=== PATIENT | female | born 1985 | race Caucasian/White ===

== ENCOUNTER 2019-01-10 17:14 | Emergency (ER) | payer BC, SELFPAY ==
[2019-01-10 17:15] VITALS: BP 115/68; PULSE 86; RESP 18; TEMP 37.1; O2SAT 97; BMI 33.6
--- NOTE | 2019-01-10 17:30 | RAD_ITS ---
STUDY: X-RAY CHEST REASON FOR EXAM: Female, 33 years old. Cough. TECHNIQUE: Frontal and lateral views of the chest. COMPARISON: 09/28/2016. FINDINGS: The lungs are clear and expanded. There is no demonstrated pleural abnormality. Normal size heart. Normal mediastinum and twila. Normal visualized pulmonary arteries. Normal visualized aortic arch and descending thoracic aorta. Normal visualized thoracic spine. Normal visualized ribs, clavicles, and shoulders. There is no demonstrated abnormality of the visualized soft tissue structures of the upper abdomen. RAD/Chest PA and Lateral IMPRESSION: Normal x-ray examination of the chest. Electronically Signed: Johnny Garcia MD at 18:46 EDT , Service support ,
[2019-01-10] MEDS: Ketorolac 60 MG/2 ML Vial IM (17:48)
--- NOTE | 2019-01-10 19:07 | ED.VISSUMM ---
- ER Visit Summary Date of Service: 01/10/19 Chief Complaint: [Cough and body aches] History of Present Illness: The patient is a 33 F [presents to the emergency department with complaint of cough for about a week. Patient coughing up occasionally some phlegm but most of the time she states that the cough is dry. Patient just has not had no energy and ended up sleeping most of the weekend. Intermittently she will have some pain in the upper abdomen/chest especially after coughing. Patient complains of a headache. She denies any fevers. She denies urinary symptoms. She denies any back pain, frequency, urgency, or hematuria.] Physical Examination: [HEENT-PERRLA, EOMI. Cranial nerves II through XII grossly intact. TMs clear. Mucous membranes moist. No adenopathy. Cardiovascular-regular rate and rhythm without murmur or ectopy Lungs-clear to auscultation, chest wall stable without crepitus or subcu emphysema Abdomen-normoactive bowel sounds, soft, nontender, no rebound or rigidity, no peritoneal signs. Extremities-intact ?4, normal range of motion, normal pulses, atraumatic] Test Results: [Chest x-ray performed was normal. Influenza screen was negative.] Emergency Department Course and Treatment: [Patient was given Toradol 60 mg IM she states that it really was not very helpful.] Treatment Plan: [At this point I suspect likely a viral syndrome patient will be given a prescription for Tessalon Perles for cough and a few [place] for severe pain. Patient advised to follow-up with her primary care physician within next 5-7 days. Patient to return if high fevers increasing shortness of breath, or condition should worsen anyway.] Disposition: [Discharged home in stable condition] Impression: [Viral URI] This note was generated with [employer] software. It may contain incorrect words, spelling, and punctuation that were not noted in review of the chart prior to signing ED Disposition - Plan for ED Patient: Referrals: Sinan Contreras MD [Primary Care Provider] -
--- NOTE | 2019-01-10 19:10 | DCINST.ED_ITS ---
ED Disposition - Plan for ED Patient: Instructions: ED Upper Resp Infec No Abx Tx Prescriptions: Hydrocodone Bitart/Apap 5-325 [[place] 5MG-325MG] 1 tab PO Q4H PRN PRN 2 Days #10 tab PRN Reason: Pain Benzonatate [Tessalon Perle] 200 mg PO TID PRN PRN #20 cap PRN Reason: Cough Referrals: Sinan Contreras MD [Primary Care Provider] - 5-7 Days
[2019-01-10 19:28] VITALS: BP 104/66; PULSE 70; RESP 16
== END 2019-01-10 19:30 | disposition home or self-care (01) ==
PROVIDERS: Emergency Provider Emergency Medicine; Family Provider Family Medicine; PCP Family Medicine
DX: J06.9 Acute upper respiratory infection, unspecified (principal); Z79.899 Other long term (current) drug therapy; Z72.0 Tobacco use
CPT/HCPCS: 71046; 87804; 96372; 99282

== ENCOUNTER 2019-12-25 17:29 | Emergency (ER) | payer BC, MEDICAID, SELFPAY ==
[2019-12-25 17:31] VITALS: BP 116/78; PULSE 76; RESP 16; TEMP 36.7; O2SAT 97; BMI 34.8
--- NOTE | 2019-12-25 18:35 | RAD_ITS ---
STUDY: X-RAY - RIGHT HAND REASON FOR EXAM: Female, 34 years old. PAIN, EDEMA AND REDNESS IN RIGHT HAND SINCE [place], DENIES INJURY TECHNIQUE: 3 view(s) of the hand. COMPARISON: None. FINDINGS: Normal radiocarpal articulation. Normal distal radioulnar joint. Normal visualized carpal bones. Normal carpal articulations Normal carpometacarpal articulation of the thumb. Normal second through fifth carpometacarpal joints. Normal metacarpi. Normal metacarpophalangeal joint of the thumb. Normal interphalangeal joint of the thumb. Normal proximal and distal phalanges of the thumb. Normal metacarpophalangeal joints of the second through fifth fingers. Normal proximal and distal interphalangeal joints of the second through fifth fingers. Normal phalanges of the second through fifth fingers. The soft tissue structures are unremarkable. RAD/Hand Min 3 Views IMPRESSION: Normal x-ray examination of the hand. Electronically Signed: Pierce Yip, at 19:18 EST Tel , Service support ,
--- NOTE | 2019-12-25 19:52 | ED.DCSUM_ITS ---
- ER Visit Summary Date of Service: 12/25/19 Chief Complaint: Right hand pain and swelling History of Present Illness: The patient is a 34 F who presents with right hand pain and swelling that is been getting worse over the past 4 days. Patient denies any trauma or injury. Patient states the pain is worse when she pushes on a certain area of her right hand at the base of her fourth and fifth metacarpals. Patient states her fingers have gotten more swollen over the past 4 days. Patient denies any paresthesias or weakness. Patient describes her pain as aching and throbbing. Physical Examination: Vital signs are stable. Patient is afebrile. Patient is in no acute distress. Musculoskeletal exam reveals tenderness over the dorsal aspect of the right hand. This is worse over the fourth and fifth metacarpal bases. There is no edema or ecchymosis. There is no bony crepitance or step- off. Range of motion was limited in flexion and extension of the right wrist secondary to pain. Sensation was intact to light touch in all digits. Capillary refill was less than 2 seconds in all digits. There are no deformities noted. Test Results: X-rays of the right hand were obtained. There is no acute fracture. There is no effusion. These were interpreted by the radiologist and myself. Emergency Department Course and Treatment: Patient was given a cock-up wrist splint. Patient was instructed to ice and elevate the right wrist. Patient was instructed to take Tylenol or ibuprofen as needed for pain. Patient was instructed to follow-up with her primary care physician in 5 to 7 days. Patient understood and was agreeable with the plan. All questions were answered. Disposition: Discharge home Impression: Right wrist pain This note was generated with [employer] dictation software. It may contain incorrect words, spelling, and punctuation that were not noted in review of the chart prior to signing ED Disposition - Plan for ED Patient: Disposition: Home or Assisted Living Diagnosis: Right wrist pain Instructions: Wrist Sprain, WRIST SPLINT, Velcro Prescriptions: Naproxen [Naprosyn] 500 mg PO BID PRN #20 tab Prescription Printed Referrals: Sinan Contreras MD [Primary Care Provider] - 5-7 Days
[2019-12-25 20:45] VITALS: RESP 16
== END 2019-12-25 20:45 | disposition home or self-care (01) ==
PROVIDERS: Emergency Provider Emergency Medicine; PCP Family Medicine
DX: M25.531 Pain in right wrist (principal); F32.9 Major depressive disorder, single episode, unspecified; F41.9 Anxiety disorder, unspecified; Z72.0 Tobacco use
CPT/HCPCS: 73130; 99283

== ENCOUNTER 2021-05-27 11:19 | Emergency (ER) | payer MEDICAID, SELFPAY ==
[2021-05-27 11:20] VITALS: BP 132/76; PULSE 86; RESP 16; TEMP 36.7; O2SAT 97; BMI 35.2
--- NOTE | 2021-05-27 11:40 | EDS_ITS ---
HPI History of Present Illness Chief Complaint: Abscess Informant: patient Onset/Context/Timing Onset: Yesterday Context: Gradual Onset Timing: Continuous Quality: Aching Location: Pubic area Worsened by: Pressure, palpation Relieved by: Nothing Narrative Narrative: Patient presents with abscess to her pubic area that began yesterday. Patient states it became more painful today. Patient states the pain is aching. Patient states it is worse whenever there is pressure over the area and with palpation. Patient states nothing makes it better. Patient admits to nausea but denies any vomiting. Patient denies any discharge or drainage. Patient denies any fevers or chills. PFSH PFSH no medical history Home Medications dupilumab [Dupixent Syringe] mg SUBCUT 05/27/21 [History Last Taken Unknown] fluoxetine [Prozac] 30 mg PO DAILY 05/27/21 [History Last Taken Unknown] sulfamethoxazole-trimethoprim 1 tab PO BID #14 tablet 05/27/21 [Rx Last Taken Unknown] Allergy/AdvReac Type Severity Reaction Status Date / Time Penicillins Allergy Swelling Verified 05/27/21 11:22 red dye AdvReac Vomiting Verified 05/27/21 11:22 Surgical History H/O tubal ligation Hx of tonsillectomy [place] teeth removed Social History Smoking Status: Current every day smoker tobacco type: e-cigarettes ROS ROS ED Constitutional Constitutional ED: Denies chills or fever(s) Eyes Eyes: Denies blurry vision or change in vision ENT ENT ED: Denies rhinorrhea or sore throat Cardiovascular Cardiovascular: Denies chest pain or palpitations Respiratory/Chest Respiratory/Chest: Denies cough or dyspnea Gastrointestinal Gastrointestinal: Reports nausea; Denies vomiting Genitourinary Genitourinary ED: Denies dysuria or hematuria Musculoskeletal Musculoskeletal: Denies back pain or neck pain Integumentary Reports abscess; Denies rash Neurologic Neurologic: Denies headache(s) or weakness Allergic/Immunologic Allergic/Immunologic ED: Denies mouth swelling or urticaria EXAM Physical Exam Const Vital Signs: 05/27/21 11:20 Temperature 98.1 F Temperature Source Oral Pulse Rate 86 Respiratory Rate 16 Blood Pressure 132/76 H Blood Pressure Mean 94 Pulse Ox 97 Oxygen Delivery Method Room Air Positive well nourished, well developed and obese General Appearance ED: well developed Nutritional Appearance: obese HEENT Reports moist mucous membranes Neck supple and no JVD Neuro CN's II-XII intact bilaterally and no sensory deficits noted Sensorium / Orientation: alert Motor Exam: strength 5/5 throughout Psych mental status grossly normal Skin Skin Narrative: There is edema, induration, and tenderness over the pubic area in the midline. There is no discharge or drainage. There is minimal fluctuance. There is some surrounding erythema. There is mild warmth. MDM MDM MDM Narrative Medical decision making narrative: Patient was given a dose of [place] here. Patient was given a dose of Bactrim here. The area was cleaned with chlorhexidine prep. The area was anesthetized with 1% plain lidocaine locally. A small cruciate incision was made using an 15 blade scalpel. A small amount of purulent drainage was expressed. The wound was left open. Bacitracin dressing was applied. Patient tolerated the procedure well. Patient was instructed to use warm compresses. Patient was given a prescription for Bactrim. Patient was instructed to follow-up with her primary care physician in 5 to 7 days. Patient understood and was agreeable with the plan. All questions were answered. Procedures Other Procedures Procedure(s): The area was cleaned with chlorhexidine prep. The area was anesthetized with 1% plain lidocaine locally. A small cruciate incision was made using an 15 blade scalpel. A small amount of purulent drainage was expressed. The wound was left open. Bacitracin dressing was applied. Patient tolerated the procedure well. Discharge Plan Triage Chief Complaint: Abscess ED Provider: Kevin Pearce Dx/Rx/DC Orders Clinical Impression: Abscess Instructions: ED Abscess Incision And Drainage Prescriptions: New sulfamethoxazole-trimethoprim [sulfamethoxazole-trimethoprim] 1 TABLET tablet 1 tab PO BID Qty: 14 RF: 0 No Action fluoxetine [Prozac] 20 mg Capsule 30 mg PO DAILY RF: 0 Dupixent Syringe 200 mg/1.14 mL Syringe SUBCUT RF: 0 Stand Alone Forms: ED Work / School Excuse Primary Care Provider: Sinan Contreras Referrals: Sinan Contreras MD [Primary Care Provider] - 5-7 Days Disposition Disposition: Home, Self Care Discharge Date/Time: 05/27/21 14:33
[2021-05-27] MEDS: Lidocaine 1% (20 ml mdv) 20 ML Vial INFILT (11:45)
[2021-05-27] MEDS: Smz/Tmp Ds Tablet 1 TABLET PO (11:45)
[2021-05-27] MEDS: HYDROcodone Bitartrate/Apap 5/325 Tablet PO (11:45)
== END 2021-05-27 14:33 | disposition home or self-care (01) ==
PROVIDERS: Emergency Provider Emergency Medicine; PCP Family Medicine
DX: L02.214 Cutaneous abscess of groin (principal); E66.9 Obesity, unspecified; Z68.35 Body mass index [BMI] 35.0-35.9, adult; F17.290 Nicotine dependence, other tobacco product, uncomplicated
CPT/HCPCS: 10060; 99283

== ENCOUNTER 2021-05-29 21:20 | Emergency (ER) | payer MEDICAID, SELFPAY ==
[2021-05-29 21:21] VITALS: BP 119/75; PULSE 79; RESP 18; TEMP 36.7; O2SAT 97; BMI 35.2
--- NOTE | 2021-05-29 22:31 | CT_ITS ---
,STUDY: CT PELVIS WITH CONTRAST REASON FOR EXAM: Female, 35 years old. Pubic abscess with increased pain and redness today. Abscess drained on Wednesday.. RADIATION DOSAGE (If Supplied By Facility): CTDIvol = ( 28.21 ) mGy, DLP = ( 988.07 ) mGycm TECHNIQUE: Transaxial imaging of the pelvis was performed without oral contrast. IV 100mL Isovue-300 was administered intravenously. Individualized dose optimization techniques were used for this CT. COMPARISON: None. FINDINGS: Normal urinary bladder. Uterus grossly normal. No adnexal mass is seen. Normal visualized small intestine. Normal visualized colon. No intra-abdominal free air. There is no pelvic fluid. There is no pelvic lymphadenopathy or mass lesion. Normal visualized pelvic arteries. Within the relatively superficial anterior subcutaneous soft tissue of the pelvis, slightly left parasagittal, at approximately the level of the pubic symphysis, is an area of soft tissue stranding measuring 5.3 x 4.1 x 2.9 cm. A focal fluid collection to suggest an abscess is not present. Findings are seen on axial image 50 series 2 and sagittal image 90. No subcutaneous emphysema. Normal osseous structures. CT/Pelvis WITH IV Contrast IMPRESSION: Focal area of cellulitis, left anterior subcutaneous soft tissue of the pelvis. No findings of an abscess. Electronically Signed: Cb Maciel MD at 0:36 EDT , Service support ,
[2021-05-29] MEDS: 0.9% Normal Saline 1,000 ML 999 ML IV (22:47)
[2021-05-29 22:53] LABS: Absolute Lymphocyte Count 1.75 X10^3/uL (0.83-4.51); Absolute Neutrophil Count 5.9 X10^3/uL (2.0-7.7); Basophil# 0.03 X10^3/uL; Basophil% 0.4 % (0-1); Eosinophil# 0.11 X10^3/uL; Eosinophils% 1.3 % (0-5); Hematocrit 38.4 % (37-47); Hemoglobin 12.3 g/dL (12.0-15.0); Lymphocyte # 1.75 X10^3/ul (0.83-4.51); Lymphocyte % 20.6 % (19-41); Mean Corpuscular Hgb 31.3 pg (27.0-32.0); Mean Corpuscular Volume 97.7 fL (81-99); Mean Platelet Vol. 10.8 fl (6.2-12.0); Monocyte# 0.65 X10^3/uL; Monocyte% 7.6 % (0-10); NRBC Flagged by Analyzer 0 % (0-5); Neutrophil # 5.94 X10^3/uL (2.7-7.7); Neutrophil % 69.7 % (47-70); Platelet Count 185 K/mm3 (150-450); RBC Distribution Width CV 12.4 % (11.6-14.6); RBC Distribution Width SD 45.2 fl (35.1-43.9); Red Blood Count 3.93 M/mm3 (4.2-5.4); White Blood Count 8.5 K/mm3 (4.4-11.0)
[2021-05-29 23:12] LABS: Anion Gap 6 (5-15); BUN 14 mg/dL (7-18); BUN/Creat Ratio 15.3 RATIO (10-20); Chloride 105 mmol/L (98-107); Creatinine, Serum 0.91 mg/dL (0.55-1.02); EST Glomerular Filtration Rate 74 mL/min (>60); Est Glom Filt Rate - Afr Amer 89 mL/min (>60); Estimated Creatinine Clearance 83.11 ml/min; Glucose 80 mg/dL (74-106); Potassium 4.1 mmol/L (3.5-5.1); Sodium Level 137 mmol/L (136-145)
--- NOTE | 2021-05-29 23:19 | EX.ED.DYSGE1 ---
HPI History of Present Illness Chief Complaint: Abscess Informant: patient Onset/Context/Timing Onset: Days (3) Context: Gradual Onset Timing: Continuous Quality: tender swollen area Location: pubic Current Severity: Severe Maximum Severity: Severe Worsened by: palpation Relieved by: nothing Associated Symptoms Associated Symptoms: drainage, general malaise. no fevers/chills. Narrative Narrative: Patient seen here 2 days ago for incision and drainage of pubic abscess, she was placed on Bactrim, states she has been taking it and the area is continuing to get worse and has gotten no better. She denies any new symptoms, saying that she was feeling somewhat generally poorly the day before the onset. She is not a diabetic, she takes medications for depression and nothing else. PFSH PFSH Home Medications dupilumab [Dupixent Syringe] mg SUBCUT 05/27/21 [History Last Taken Unknown] fluoxetine [Prozac] 30 mg PO DAILY 05/27/21 [History Last Taken Unknown] sulfamethoxazole-trimethoprim 1 tab PO BID #14 tablet 05/27/21 [Rx Last Taken Unknown] Allergy/AdvReac Type Severity Reaction Status Date / Time Penicillins Allergy Swelling Verified 05/29/21 21:23 red dye AdvReac Vomiting Verified 05/29/21 21:23 Surgical History H/O tubal ligation Hx of tonsillectomy [place] teeth removed Social History Smoking Status: Current every day smoker tobacco type: e-cigarettes ROS ROS ED Constitutional Constitutional ED: Denies chills or fever(s) Eyes Eyes: Denies change in vision or diplopia ENT ENT ED: Denies rhinorrhea or sore throat Cardiovascular Cardiovascular: Denies chest pain or palpitations Respiratory/Chest Respiratory/Chest: Denies cough or dyspnea Gastrointestinal Gastrointestinal: Denies abdominal pain, diarrhea, nausea or vomiting Genitourinary Genitourinary ED: Denies dysuria or hematuria Musculoskeletal Musculoskeletal: Denies back pain or neck pain Integumentary Reports abscess Neurologic Neurologic: Denies headache(s), paresthesias or weakness Psychiatric Psychiatric: Denies anxiety or suicidal thoughts EXAM Physical Exam Const Vital Signs: 05/29/21 21:21 05/29/21 23:47 05/30/21 00:47 Temperature 98.0 F Temperature Source Temporal Pulse Rate 79 65 72 Pulse Rate [1 (Initial Baseline)] Pulse Rate [2] Pulse Rate [3] Pulse Rate [4] Respiratory Rate 18 16 19 H Respiratory Rate [1 (Initial Baseline)] Respiratory Rate [2] Respiratory Rate [3] Respiratory Rate [4] Blood Pressure 119/75 110/65 97/52 L Blood Pressure [1 (Initial Baseline)] Blood Pressure [2] Blood Pressure [3] Blood Pressure [4] Blood Pressure Mean 89 67 Pulse Ox 97 100 100 Oxygen Delivery Method Room Air Nasal Cannula Room Air Oxygen Delivery Method [1 (Initial Baseline)] Oxygen Delivery Method [2] Oxygen Delivery Method [3] Oxygen Delivery Method [4] Oxygen Flow Rate (L/min) 2 Oxygen Flow Rate (L/min) [2] Oxygen Flow Rate (L/min) [3] Oxygen Flow Rate (L/min) [4] 05/30/21 02:08 05/30/21 02:30 05/30/21 02:35 Temperature Temperature Source Pulse Rate 66 70 Pulse Rate [1 (Initial Baseline)] 72 Pulse Rate [2] 73 Pulse Rate [3] 72 Pulse Rate [4] 68 Respiratory Rate 20 H 18 Respiratory Rate [1 (Initial Baseline)] 22 H Respiratory Rate [2] 17 Respiratory Rate [3] 16 Respiratory Rate [4] 17 Blood Pressure 101/84 H 117/83 H Blood Pressure [1 (Initial Baseline)] 105/66 Blood Pressure [2] 115/69 Blood Pressure [3] 122/78 H Blood Pressure [4] 114/70 Blood Pressure Mean Pulse Ox 99 99 Oxygen Delivery Method Room Air Room Air Oxygen Delivery Method [1 (Initial Baseline)] Room Air Oxygen Delivery Method [2] Nasal Cannula Oxygen Delivery Method [3] Nasal Cannula Oxygen Delivery Method [4] Nasal Cannula Oxygen Flow Rate (L/min) Oxygen Flow Rate (L/min) [2] 2 Oxygen Flow Rate (L/min) [3] 2 Oxygen Flow Rate (L/min) [4] 2 05/30/21 02:40 Temperature Temperature Source Pulse Rate 65 Pulse Rate [1 (Initial Baseline)] Pulse Rate [2] Pulse Rate [3] Pulse Rate [4] Respiratory Rate 12 Respiratory Rate [1 (Initial Baseline)] Respiratory Rate [2] Respiratory Rate [3] Respiratory Rate [4] Blood Pressure 121/76 H Blood Pressure [1 (Initial Baseline)] Blood Pressure [2] Blood Pressure [3] Blood Pressure [4] Blood Pressure Mean Pulse Ox 99 Oxygen Delivery Method Room Air Oxygen Delivery Method [1 (Initial Baseline)] Oxygen Delivery Method [2] Oxygen Delivery Method [3] Oxygen Delivery Method [4] Oxygen Flow Rate (L/min) Oxygen Flow Rate (L/min) [2] Oxygen Flow Rate (L/min) [3] Oxygen Flow Rate (L/min) [4] Positive well nourished and well developed General Appearance ED: well developed and NAD HEENT Reports moist mucous membranes normocephalic and atraumatic Eyes PERRL and EOMs intact bilaterally Neck full ROM and supple Resp normal respiratory effort and clear to auscultation bilaterally Cardio regular rate, regular rhythm and no murmurs GI non-distended GI Narrative: Tender over mons pubis, no other areas of tenderness. Auscultation: normoactive bowel sounds Palpation: soft Extremity normal to inspection General Extremety ED: Negative for edema, pulses abnormal or tenderness General Extremity: Negative for edema or pulses abnormal Neuro oriented x3, CN's II-XII intact bilaterally and no sensory deficits noted Sensorium / Orientation: awake and alert Motor Exam: strength 5/5 throughout Skin Skin Narrative: Entire mons pubis is erythematous, mildly swollen diffusely, and very tender. No definite fluctuance, but there is a small cruciate incision in the center that is healing and actively draining thick transparent material. MDM MDM MDM Narrative Medical decision making narrative: Initially spoke with Dr. Gonzalez with surgery, she recommended starting with imaging and CT in the area which was done, and after reviewing the images it is obvious that there is no extensive abscess here, it appears more like cellulitis but the patient is obviously draining from the wound and I think she needs a repeat I&D but this can basically be done at the bedside and will not necessarily require operating room management at this time. Patient was amenable to that and requesting procedural sedation which I think is totally appropriate as it is very erythematous and tender. She last ate about 7 hours prior to initial evaluation, she was maintained n.p.o. and given IV fluids in addition to vancomycin after I sent a wound culture. Despite the CT scan, patient was amenable to repeating a bedside procedure. Since the CT does not show an extensive cavity, I do not think the patient will require going to the operating room. Discussed all this with the patient she was amenable to repeat I&D at the bedside but with procedural sedation this time which I was more than happy to provide. See the procedure note below. It was uncomplicated, it was a large cavity that I deloculated, there were multiple parts of it, and I think the patient will get better afterwards. It was packed with half-inch gauze and she was given appropriate instructions on removing it in 2 days if it is improving. Lab Data Attestation: I reviewed the patient's lab results. Labs: Laboratory Results - last 24 hr 05/29/21 05/29/21 22:45 22:45 WBC 8.5 RBC 3.93 L Hgb 12.3 Hct 38.4 MCV 97.7 MCH 31.3 MCHC 32.0 RDW Std Deviation 45.2 H RDW Coeff of Carlos 12.4 Plt Count 185 MPV 10.8 Immature Gran % (Auto) 0.400 Neut % (Auto) 69.7 Lymph % (Auto) 20.6 Hale % (Auto) 7.6 Eos % (Auto) 1.3 Baso % (Auto) 0.4 Absolute Neuts (auto) 5.9 Absolute Lymphs (auto) 1.75 Nucleated RBC % 0 Sodium 137 Potassium 4.1 Chloride 105 Carbon Dioxide 26.0 Anion Gap 6 BUN 14 Creatinine 0.91 Estim Creat Clear Calc 83.11 Est GFR (MDRD) Af Amer 89 Est GFR (MDRD) Non-Af 74 BUN/Creatinine Ratio 15.3 Glucose 80 Calcium 9.0 Radiography Diagnostic Testing: Radiology Impression Pelvis CT 05/29/21 22:31 IMPRESSION: Focal area of cellulitis, left anterior subcutaneous soft tissue of the pelvis. No findings of an abscess. Electronically Signed: Cb Maciel MD at 0:36 EDT , Service support , Procedures Other Procedures Procedure(s): Procedural sedation --patient n.p.o. more than 6 hours, IV fluids going, preoxygenated before and during procedure with 2 L nasal cannula, on the monitor, resuscitative equipment at the bedside. Informed consent signed all questions answered prior to sedation with propofol, initially 1 mg/kg given, with another 0.5 mg/kg given in a separate aliquot later for a total of 150 mg. No complications tolerated well, recovered uneventfully. Complex cutaneous abscess incision and drainage -- prepped and draped in sterile fashion with chlorhexidine, locally anesthetized 5 cc plain 1% lidocaine, incised over recent cruciate incision with a #11 blade, vertical incision. Large cavity, purulent material drained relatively small amount compared with the size of the cavity, deloculated in all directions bluntly with hemostats, cavity irrigated with sterile saline 100 cc, and packed with half-inch sterile gauze. Dressed with bacitracin. Tolerated well no complications. Discharge Plan Triage Chief Complaint: Abscess ED Provider: Frederic Jorge Dx/Rx/DC Orders Clinical Impression: Cutaneous abscess of abdominal wall Instructions: ED Abscess Incision And Drainage Prescriptions: No Action fluoxetine [Prozac] 20 mg Capsule 30 mg PO DAILY RF: 0 Dupixent Syringe 200 mg/1.14 mL Syringe SUBCUT RF: 0 sulfamethoxazole-trimethoprim [sulfamethoxazole-trimethoprim] 1 TABLET tablet 1 tab PO BID Qty: 14 RF: 0 Primary Care Provider: Sinan Contreras Referrals: iSnan Contreras MD [Primary Care Provider] - Nunu Gonzalez MD [STAFF PHYSICIAN] - 3-5 Days if not improving Activity Restrictions/Additional Instructions: Continue taking the prescribed antibiotic until completely gone. You have a gauze packing within the cavity of the abscess. If you have improvement in the pain/redness/swelling, remove the packing in 48 hours or so by pulling straight out and discarding, followed by a gauze dressing. Continue changing dressings as needed, as the gauze gets dirty/wet, to continue drawing the contents of the abscess out. Disposition Disposition: Home, Self Care
[2021-05-29 23:47] VITALS: BP 110/65; PULSE 65; RESP 16; O2SAT 100
[2021-05-30 00:47] VITALS: BP 97/52; PULSE 72; RESP 19; O2SAT 100
[2021-05-30 02:08] VITALS: BP 105/66; BP 114/70; BP 115/69; BP 122/78; PULSE 68; PULSE 72; PULSE 73; RESP 16; RESP 17; RESP 22; O2SAT 100; O2SAT 98; O2SAT 99
[2021-05-30] MEDS: Propofol 200 MG/20 ML Vial IV BOLUS (02:09)
[2021-05-30 02:30] VITALS: BP 101/84; PULSE 66; RESP 20; O2SAT 99
[2021-05-30] MEDS: Lidocaine 1% (20 ml mdv) 20 ML Vial INFILT (02:31)
[2021-05-30 02:35] VITALS: BP 117/83; PULSE 70; RESP 18; O2SAT 99
[2021-05-30] MEDS: Morphine 4 MG/ML Syringe IV (02:36)
[2021-05-30 02:40] VITALS: BP 121/76; PULSE 65; RESP 12; O2SAT 99
[2021-05-30 02:49] VITALS: BP 128/84; PULSE 66; RESP 14; O2SAT 100
== END 2021-05-30 02:58 | disposition home or self-care (01) ==
PROVIDERS: Emergency Provider Emergency Medicine; PCP Family Medicine
DX: L02.211 Cutaneous abscess of abdominal wall (principal); F17.290 Nicotine dependence, other tobacco product, uncomplicated
CPT/HCPCS: 10061; 72193; 80048; 85025; 87070; 87077; 87186; 87205; 96365; 96366; 96375; 99152; 99284; J7030; J7040; Q9967; A4216

== ENCOUNTER 2021-06-01 20:55 | Emergency (ER) | payer MEDICAID, SELFPAY ==
[2021-06-01 20:56] VITALS: BP 122/77; PULSE 78; RESP 15; TEMP 36.8; O2SAT 96; BMI 35.2
--- NOTE | 2021-06-01 22:59 | CT_ITS ---
HISTORY: Pelvic pain EXAMINATION: CT Abdomen And Pelvis W/ Contrast Injection TECHNIQUE: Helically acquired images were obtained of the abdomen and pelvis following IV contrast. A radiation dose optimization technique was used for this scan. IV Contrast dosage and agent: 100mL [id number]-370 Oral contrast: None. COMPARISON: CT pelvis 05/29/21 FINDINGS: LOWER CHEST: Lung bases are clear. No cardiomegaly or pericardial effusion. LIVER: Homogeneous. No focal mass. GALLBLADDER AND BILIARY TREE: No calcified gallstones. Gallbladder contracted. No intra- or extrahepatic biliary ductal dilation. PANCREAS: No focal cystic or solid mass. SPLEEN: Normal size without focal cystic or solid mass. ADRENAL GLANDS: No nodules. KIDNEYS AND URETERS: Normal renal size and position. No hydronephrosis. PERITONEUM: No ascites or free air. BOWEL: Normal appendix. No stomach or bowel distension. No focal inflammatory bowel wall changes. LYMPH NODES: No enlarged mesenteric or retroperitoneal lymph nodes. VESSELS: Aorta is non-dilated. URINARY BLADDER: Unremarkable. REPRODUCTIVE ORGANS: No pelvic masses. 1.7 cm left ovarian follicle minimally decreased from prior study, 1.9 cm. ABDOMINAL WALL: Persistent, minimally decreased subcutaneous fatty induration/cellulitis left inguinal region with shotty left inguinal lymph node. No abscess formation. BONES: No acute or aggressive abnormality. CT/Abdomen/Pelvis W IV Cont ONLY IMPRESSION: No acute findings in the abdomen or pelvis. Persistent, slightly decreased, subcutaneous induration/cellulitis in the left inguinal region without abscess formation. Individualized dose optimization techniques were used for this CT. at 0007 Reported and signed by: Cb Quintana MD Electronically Signed: Cb Quintana MD at 0:06 EDT Tel , Service support ,
--- NOTE | 2021-06-01 23:03 | EX.ED.DYSGE1 ---
HPI History of Present Illness Chief Complaint: Abscess Onset/Context/Timing Onset: Days (5) Context: Gradual Onset Timing: Continuous Quality: Burning, sharp Location: Suprapubic abdomen Worsened by: Sitting in certain positions and prolonged walking Relieved by: Nothing Narrative Narrative: Patient presents with abscess in her suprapubic and pelvic area that has been getting worse. Patient was seen here twice for this. Patient had incision and drainage done twice in this area. Patient states she remove the packing yesterday and her pain and swelling has gotten worse. Patient describes her pain as burning and sharp. Patient states the pain is worse with sitting and certain positions and prolonged walking. Patient admits to chills and sweats. Patient admits to nausea but denies any vomiting. Patient denies any fevers. PFSH PFSH Medical History Anxiety Depression Smoker Home Medications dupilumab [Dupixent Syringe] mg SUBCUT 05/27/21 [History Last Taken Unknown] fluoxetine [Prozac] 30 mg PO DAILY 05/27/21 [History Last Taken Unknown] doxycycline monohydrate 100 mg PO BID #20 capsule 06/02/21 [Rx Last Taken Unknown] Allergy/AdvReac Type Severity Reaction Status Date / Time Penicillins Allergy Swelling Verified 06/01/21 20:58 red dye AdvReac Vomiting Verified 06/01/21 20:58 Surgical History H/O tubal ligation Hx of tonsillectomy Isabella teeth removed Social History Smoking Status: Current every day smoker tobacco type: e-cigarettes ROS ROS ED Constitutional Constitutional ED: Reports chills and sweats; Denies fever(s) Eyes Eyes: Denies blurry vision or change in vision ENT ENT ED: Denies rhinorrhea or sore throat Cardiovascular Cardiovascular: Denies chest pain or palpitations Respiratory/Chest Respiratory/Chest: Denies cough or dyspnea Gastrointestinal Gastrointestinal: Reports nausea; Denies vomiting Genitourinary Genitourinary ED: Denies dysuria or hematuria Musculoskeletal Musculoskeletal: Denies back pain or neck pain Integumentary Reports abscess; Denies rash Neurologic Neurologic: Denies headache(s) or weakness Allergic/Immunologic Allergic/Immunologic ED: Denies mouth swelling or urticaria EXAM Physical Exam Const Vital Signs: 06/01/21 20:56 06/01/21 23:31 06/02/21 00:58 Temperature 98.3 F 98.8 F Temperature Source Temporal Temporal Pulse Rate 78 70 64 Pulse Rate [1 (Initial Baseline)] Pulse Rate [2] Respiratory Rate 15 15 14 Respiratory Rate [1 (Initial Baseline)] Respiratory Rate [2] Blood Pressure 122/77 H 106/61 99/59 L Blood Pressure [1 (Initial Baseline)] Blood Pressure [2] Blood Pressure Mean 92 76 72 Pulse Ox 96 99 99 Oxygen Delivery Method Room Air Room Air Room Air Oxygen Delivery Method [1 (Initial Baseline)] Oxygen Delivery Method [2] Oxygen Flow Rate (L/min) Oxygen Flow Rate (L/min) [1 (Initial Baseline)] Oxygen Flow Rate (L/min) [2] Fraction of Inspired Oxygen (FIO2) [2] 06/02/21 03:31 06/02/21 03:34 06/02/21 03:42 Temperature Temperature Source Pulse Rate 69 64 Pulse Rate [1 (Initial Baseline)] 66 Pulse Rate [2] 71 Respiratory Rate 18 16 Respiratory Rate [1 (Initial Baseline)] 15 Respiratory Rate [2] 18 Blood Pressure 119/75 106/66 Blood Pressure [1 (Initial Baseline)] 124/83 H Blood Pressure [2] 106/66 Blood Pressure Mean Pulse Ox 100 92 Oxygen Delivery Method Nasal Cannula Nasal Cannula Oxygen Delivery Method [1 (Initial Baseline)] Nasal Cannula Oxygen Delivery Method [2] Nasal Cannula Oxygen Flow Rate (L/min) 2 2 Oxygen Flow Rate (L/min) [1 (Initial Baseline)] 2 Oxygen Flow Rate (L/min) [2] 2 Fraction of Inspired Oxygen (FIO2) [2] 2 06/02/21 03:44 Temperature Temperature Source Pulse Rate 63 Pulse Rate [1 (Initial Baseline)] Pulse Rate [2] Respiratory Rate 13 Respiratory Rate [1 (Initial Baseline)] Respiratory Rate [2] Blood Pressure 99/49 L Blood Pressure [1 (Initial Baseline)] Blood Pressure [2] Blood Pressure Mean Pulse Ox 96 Oxygen Delivery Method Room Air Oxygen Delivery Method [1 (Initial Baseline)] Oxygen Delivery Method [2] Oxygen Flow Rate (L/min) Oxygen Flow Rate (L/min) [1 (Initial Baseline)] Oxygen Flow Rate (L/min) [2] Fraction of Inspired Oxygen (FIO2) [2] Positive well nourished, well developed and obese General Appearance ED: well developed Nutritional Appearance: obese HEENT Reports moist mucous membranes Neck supple and no JVD GI normal to inspection, nondistended, normoactive bowel sounds and non-tender Palpation: soft Neuro oriented x3, CN's II-XII intact bilaterally and no sensory deficits noted Sensorium / Orientation: alert Motor Exam: strength 5/5 throughout Skin Skin Narrative: There is abscess with surrounding erythema over the suprapubic and left pelvic area. There is tenderness to palpation over this area. There is some mild fluctuance on the left. There is induration noted. There is no active discharge or drainage. MDM MDM MDM Narrative Medical decision making narrative: CBC and comprehensive metabolic profile were obtained were within normal limits. CT scan of the abdomen and pelvis was obtained. There is persistent subcutaneous induration/cellulitis in the left inguinal region but there is no abscess formation. This was interpreted by the radiologist and reviewed by myself. Patient was given a dose of clindamycin here. Patient was given a dose of [place]. On palpation, there was an area that appeared to be somewhat fluctuant in the left inguinal area. Patient is agreeable to have this area opened and drained. The procedure was discussed with the patient. She was given the opportunity ask questions. She had no further questions. Patient is agreeable to have this done under moderate sedation. Patient was given a dose of propofol. The area was cleaned with chlorhexidine. The area was anesthetized 1% lidocaine locally. A #11 blade was used to make a cruciate incision. There is minimal amount of purulent drainage noted. Patient tolerated the procedure well. Bacitracin dressing was applied. Patient was instructed to stop taking her Bactrim. Patient was given a prescription for doxycycline to take instead. Patient is agreeable with this. Patient was instructed to follow-up with her primary care physician in 3 to 5 days. Patient was also given a referral for Dr. Gonzalez during her last visit. Patient states she has not scheduled this yet. Patient was instructed to schedule this appointment for this week. Patient was instructed to return if worse in any way. Patient understood and was agreeable with the plan. All questions were answered. Lab Data Attestation: I reviewed the patient's lab results. Labs: Laboratory Results - last 24 hr 06/01/21 06/01/21 23:20 23:20 WBC 6.9 RBC 3.84 L Hgb 12.0 Hct 38.5 MCV 100.3 H MCH 31.3 MCHC 31.2 L RDW Std Deviation 45.8 H RDW Coeff of Carlos 12.5 Plt Count 229 MPV 10.6 Immature Gran % (Auto) 0.600 Neut % (Auto) 58.4 Lymph % (Auto) 32.4 Arthur % (Auto) 6.6 Eos % (Auto) 1.4 Baso % (Auto) 0.6 Absolute Neuts (auto) 4.0 Absolute Lymphs (auto) 2.24 Nucleated RBC % 0 Sodium 136 Potassium 3.8 Chloride 108 H Carbon Dioxide 23.0 Anion Gap 5 BUN 14 Creatinine 1.14 H Estim Creat Clear Calc 66.34 Est GFR (MDRD) Af Amer 69 Est GFR (MDRD) Non-Af 57 L BUN/Creatinine Ratio 12.3 Glucose 76 Calcium 8.6 Total Bilirubin 0.10 L AST 19 ALT 31 Alkaline Phosphatase 107 Total Protein 7.5 Albumin 3.4 Globulin 4.1 Albumin/Globulin Ratio 0.8 L Radiography Diagnostic Testing: Radiology Impression Abdomen/Pelvis CT 06/01/21 22:59 IMPRESSION: No acute findings in the abdomen or pelvis. Persistent, slightly decreased, subcutaneous induration/cellulitis in the left inguinal region without abscess formation. Individualized dose optimization techniques were used for this CT. at 0007 Reported and signed by: Cb Quintana MD Electronically Signed: Cb Quintana MD at 0:06 EDT Tel , Service support , Procedures Other Procedures Procedure(s): The area was cleaned with chlorhexidine prep. Patient was sedated with propofol. Patient was monitored on continuous cardiac and pulse oximeter monitors. The area was anesthetized with 1% plain lidocaine locally. A small cruciate incision was made using an 11 blade scalpel. A small amount of purulent drainage was expressed. The wound was left open. Patient tolerated the procedure well. Patient had no dysrhythmias or hypoxic episodes. Patient was awake and alert after the procedure. Bacitracin dressing was applied. Discharge Plan Triage Chief Complaint: Abscess ED Provider: Kevin Pearce Dx/Rx/DC Orders Clinical Impression: Cutaneous abscess of abdominal wall Instructions: ED Abscess Incision And Drainage Prescriptions: New doxycycline monohydrate 100 MG capsule 100 mg PO BID Qty: 20 RF: 0 Discontinued sulfamethoxazole-trimethoprim [sulfamethoxazole-trimethoprim] 1 TABLET tablet 1 tab PO BID Qty: 14 RF: 0 No Action fluoxetine [Prozac] 20 mg Capsule 30 mg PO DAILY RF: 0 Dupixent Syringe 200 mg/1.14 mL Syringe SUBCUT RF: 0 Primary Care Provider: Sinan Contreras Referrals: Sinan Contreras MD [Primary Care Provider] - 3-5 Days Nunu Gonzalez MD [STAFF PHYSICIAN] - 5-7 Days Disposition Disposition: Home, Self Care Discharge Date/Time: 06/02/21 04:29
[2021-06-01 23:31] VITALS: BP 106/61; PULSE 70; RESP 15; O2SAT 99
[2021-06-01 23:36] LABS: Absolute Lymphocyte Count 2.24 X10^3/uL (0.83-4.51); Basophil# 0.04 X10^3/uL; Basophil% 0.6 % (0-1); Eosinophils% 1.4 % (0-5); Hematocrit 38.5 % (37-47); Lymphocyte # 2.24 X10^3/ul (0.83-4.51); Lymphocyte % 32.4 % (19-41); Mean Corp Hgb Conc 31.2 g/dL (32-36); Mean Corpuscular Hgb 31.3 pg (27.0-32.0); Mean Corpuscular Volume 100.3 fL (81-99); Mean Platelet Vol. 10.6 fl (6.2-12.0); Monocyte# 0.46 X10^3/uL; Monocyte% 6.6 % (0-10); NRBC Flagged by Analyzer 0 % (0-5); Neutrophil # 4.04 X10^3/uL (2.7-7.7); Neutrophil % 58.4 % (47-70); Platelet Count 229 K/mm3 (150-450); RBC Distribution Width CV 12.5 % (11.6-14.6); RBC Distribution Width SD 45.8 fl (35.1-43.9); Red Blood Count 3.84 M/mm3 (4.2-5.4); White Blood Count 6.9 K/mm3 (4.4-11.0)
[2021-06-01] MEDS: Morphine 4 MG/ML Syringe IV (23:45)
[2021-06-01] MEDS: 0.9% Normal Saline 1,000 ML 1000 ML IV (23:45)
[2021-06-01 23:55] LABS: ALB/GLOB Ratio 0.8 RATIO (0.9-2.4); AST(SGOT) 19 U/L (15-37); Alanine Aminotransfer ALT/SGPT 31 U/L (13-56); Albumin, Serum 3.4 g/dL (3.2-5.0); Alkaline Phosphatase 107 U/L (45-117); Anion Gap 5 (5-15); BUN 14 mg/dL (7-18); BUN/Creat Ratio 12.3 RATIO (10-20); Calcium,Total 8.6 mg/dL (8.5-10.1); Chloride 108 mmol/L (98-107); Creatinine, Serum 1.14 mg/dL (0.55-1.02); EST Glomerular Filtration Rate 57 mL/min (>60); Est Glom Filt Rate - Afr Amer 69 mL/min (>60); Estimated Creatinine Clearance 66.34 ml/min; Globulin 4.1 g/dL (2.2-4.2); Glucose 76 mg/dL (74-106); Potassium 3.8 mmol/L (3.5-5.1); Protein, Total 7.5 g/dL (6.4-8.2); Sodium Level 136 mmol/L (136-145)
[2021-06-02 00:58] VITALS: BP 99/59; PULSE 64; RESP 14; TEMP 37.1; O2SAT 99
[2021-06-02 01:23] VITALS: BP 108/61; O2SAT 98
[2021-06-02 03:31] VITALS: BP 119/75; PULSE 69; RESP 18; O2SAT 100
[2021-06-02 03:34] VITALS: BP 106/66; BP 124/83; PULSE 66; PULSE 71; RESP 15; RESP 18; O2SAT 100; O2SAT 94
[2021-06-02 03:42] VITALS: BP 106/66; PULSE 64; RESP 16; O2SAT 92
[2021-06-02 03:44] VITALS: BP 99/49; PULSE 63; RESP 13; O2SAT 96
[2021-06-02] MEDS: Propofol 200 MG/20 ML Vial IV BOLUS (03:51)
[2021-06-02] MEDS: Lidocaine 1% (20 ml mdv) 20 ML Vial INFILT (03:51)
[2021-06-02] MEDS: HYDROcodone Bitartrate/Apap 5/325 Tablet PO (04:11)
== END 2021-06-02 04:29 | disposition home or self-care (01) ==
PROVIDERS: Emergency Provider Emergency Medicine; PCP Family Medicine
DX: L02.211 Cutaneous abscess of abdominal wall (principal); F32.9 Major depressive disorder, single episode, unspecified; F41.9 Anxiety disorder, unspecified; F17.290 Nicotine dependence, other tobacco product, uncomplicated; E66.9 Obesity, unspecified; Z79.899 Other long term (current) drug therapy
CPT/HCPCS: 10060; 36415; 74177; 80053; 85025; 87040; 96365; 96366; 96375; 99285; J7030; Q9967; A4216